=== PATIENT | female | born 1975 | race Caucasian/White ===

== ENCOUNTER 2017-03-04 14:15 | Emergency (ER) | payer MEDICAID ==
[~2017-03-04 14:15] MED LIST: ACID CONTROL150 M2 PO; ALBUTEROL SULF8.5 GM IH; ASPIR 8181 MG PO; AUGMENTIN875 MG/TA1 PO; AZITHROMYCIN250 M1 PO; BACTRIM 400-801 EACH PO; BACTRIM DS TAB1 EAC2 PO; BENTYL20 MG PO; BENZONATATE200 M1 PO; CIPRO500 M2 PO; CYMBALTA30 M1 PO; CYMBALTA30 MG PO; CYMBALTA60 MG; CYMBALTA60 MG PO; DELTASONE10 MG PO; FLAGYL500 M1 PO; FLAGYL500 MG PO; FLEXERIL 10MG PO; FLONASE ALLERG9.9 ML; GUAIFEN-CODEIN120 ML PO; HEARTBURN150 MG PO; IBUPROFEN400 MG PO; MIRALAX17 G2 PO; MOTRIN600 MG PO; MUCINEX D TABL1 EACH PO; NAPROXEN250 MG PO; NORCO 10/325 TA1 TAB PO; NORCO 5-325 TA1 EACH PO; NORCO 5/325 TAB1 TAB PO; NORCO 7.5/3251 TAB PO; NORFLEX100 MG PO; OXYCONTIN20 MG PO; PEPCID20 M1 PO; PERCOCET 5/3251 TAB PO; PHENERGAN W/CO120 M1 PO; PREDNISONE10 M1 PO; PROVENTIL HFA6.7 G1 IH; PYRIDIUM200 M2 PO; RANITIDINE HCL150 M3 PO; RANITIDINE HCL300 MG PO; RANITIDINE HCL75 M1 PO; ROZEREM8 M1 PO; ROZEREM8 MG; ROZEREM8 MG PO; TRAZODONE50 MG PO; ZANTAC150 MG PO; ZOFRAN4 M2 PO; ZYRTEC1010 PO
[2017-03-04] MEDS ORDERED: EPIPEN 2-P0.3 MG/0.3 IM (14:19)
[2017-03-04] MEDS ORDERED: HYDROCODON-ACE1 EA15 PO (14:19)
[2017-03-04] MEDS ORDERED: PREDNISONE20 M1 PO (14:46)
[2017-07-26] MEDS ORDERED: MEDROL4 M1 PO (01:25)
[2017-07-26] MEDS ORDERED: NORCO 5-325 TA1 EACH PO (01:25)
== END 2017-03-04 15:14 ==
LOC: EDMED 14:15
DX: M54.32 Sciatica, left side (principal)
CPT/HCPCS: J1885